=== PATIENT | female | born 1975 ===

== ENCOUNTER 2025-08-04 21:18 | Outpatient (CLI) | payer MEDICAID, SELFPAY | END 2025-08-04 21:19 | disposition home or self-care (01) | LOC: AMB 09-06 09:41 | PROVIDERS: Visit Provider Family Medicine | DX: S89.91XA Unspecified injury of right lower leg, initial encounter (principal); W01.0XXA Fall on same level from slipping, tripping and stumbling without subsequent striking against object, initial encounter; Y92.511 Restaurant or cafe as the place of occurrence of the external cause | CPT/HCPCS: A0425; A0427 ==